=== PATIENT | female | born 1965 | race Caucasian/White ===

== ENCOUNTER 2018-07-20 17:56 | Emergency (ER) | payer MEDICAID ==
[~2018-07-20] VITALS: Ht 157.5 cm; Wt 58.5 kg
[2018-07-20 18:22] VITALS: BP 103/65; Ht 157.5 cm; Wt 58.5 kg
== END 2018-07-20 20:48 | disposition home or self-care (01) ==
LOC: ED 17:56
DX: N75.1 Abscess of Bartholin's gland (principal)
CPT/HCPCS: 82962; J2001

== ENCOUNTER 2018-07-22 20:38 | Emergency (ER) | payer MEDICAID ==
[~2018-07-22] VITALS: Ht 157.5 cm; Wt 59.4 kg
[2018-07-22 20:43] VITALS: BP 113/77; Ht 157.5 cm; Wt 59.4 kg
== END 2018-07-22 21:14 | disposition home or self-care (01) ==
LOC: ED 20:38
DX: N75.0 Cyst of Bartholin's gland (principal); E11.9 Type 2 diabetes mellitus without complications; Z48.01 Encounter for change or removal of surgical wound dressing; Z88.0 Allergy status to penicillin